=== PATIENT | female | born 1985 | race Caucasian/White ===

== ENCOUNTER 2018-04-21 13:28 | Emergency (ER) | payer SELFPAY ==
[2018-04-21] MEDS ORDERED: PAXIL40 M1 PO (13:37)
[2018-04-21] MEDS ORDERED: BENTYL 20MG20 MG/TAB PO (13:38)
[2018-04-21] MEDS ORDERED: METOPROLOL SUCC25 M1 PO (13:38)
[2018-04-21] MEDS ORDERED: CLEOCIN HCL300 MG PO (14:09)
[2018-04-21] MEDS ORDERED: NORCO 325 MG-51 TA1 PO (14:09)
[2018-04-21 14:22] VITALS: BP 157/114
== END 2018-04-21 14:22 | disposition home or self-care (01) ==
LOC: ED 13:28
DX: K04.7 Periapical abscess without sinus (principal); I10 Essential (primary) hypertension; T44.7X6A Underdosing of beta-adrenoreceptor antagonists, initial encounter; F17.200 Nicotine dependence, unspecified, uncomplicated; K03.81 Cracked tooth; K08.409 Partial loss of teeth, unspecified cause, unspecified class; R46.0 Very low level of personal hygiene